=== PATIENT | male | born 1965 | race Caucasian/White ===

== ENCOUNTER → 2016-12-24 | Outpatient (CLI) | payer OTHER ==
[~2016-12-24] MED LIST: LEVO150T7 PO; LUMI0.01 EACH EYE; RANI300T PO; TEST1INJ3 IM
[2016-12-24 12:29] LABS: AUTOMATED NEUTROPHIL # 3.8 TH/MM3 (1.8-7.7); BASOPHIL % 0.5 % (0.0-2.0); EOSINOPHIL # 0.4 TH/MM3 (0-0.4); EOSINOPHIL % 5.1 % (0.0-4.0); HEMATOCRIT 43.3 % (39.0-51.0); HEMO FLAGS DIFF FINAL; LYMPHOCYTE # 2.5 TH/MM3 (1.0-4.8); MEAN CELL VOLUME 91.7 FL (80.0-100.0); MEAN CORPUSCULAR HEMOGLOBIN 32.7 PG (27.0-34.0); MEAN CORPUSCULAR HGB CONC 35.7 % (32.0-36.0); MONO % 11.1 % (0.0-8.0); NEUT % 50.3 % (16.0-70.0); PLATELET COUNT 365 TH/MM3 (150-450); RED BLOOD COUNT 4.72 MIL/MM3 (4.50-5.90); RED CELL DISTRIBUTION WIDTH 13.6 % (11.6-17.2); WHITE BLOOD COUNT 7.5 TH/MM3 (4.0-11.0)
[2016-12-24 12:48] LABS: BLOOD, URINE NEG (NEG); COMMENT (UR) CULT NOT INDICATED; CULTURE IF INDICATED CULT NOT INDICATED; GLUCOSE,URINE NEG (NEG); KETONE, URINE NEG (NEG); MUCUS URINE FEW /lpf (OCC); NITRITE,URINE NEG (NEG); PH, URINE 6.5 (5.0-8.5); URINE COLOR LIGHT-YELLOW (YELLW/STRAW)
[2016-12-24 12:56] LABS: ANION GAP 8 MEQ/L (5-15); AST (GOT) 26 U/L (15-37); BICARBONATE 24.2 MEQ/L (21.0-32.0); BLOOD UREA NITROGEN 12 MG/DL (7-18); CHLORIDE 105 MEQ/L (98-107); GLOMERULAR FILTRATION RATE 73 ML/MIN (>89); GLUCOSE,FASTING 112 MG/DL (74-99); SODIUM (NA) 137 MEQ/L (136-145)
[2016-12-24 13:00] LABS: ALKALINE PHOSPHATASE 53 U/L (45-117); ALT (GPT) 50 U/L (12-78); TOTAL BILIRUBIN ADULT 0.4 MG/DL (0.2-1.0)
--- NOTE | 2016-12-24 13:21 | RADRPT ---
EXAM DATE/TIME: 12/24/2016 12:57 [facility] COMPARISON: No previous studies available for comparison. INDICATIONS : Pre-op Anorectoplasty. Evaluate for pneumonia, pneumothorax and communicable diseases. MEDICAL HISTORY : None. SURGICAL HISTORY : None. ENCOUNTER: Initial ACUITY: 1 day PAIN SCORE: 0/10 LOCATION: Bilateral chest FINDINGS: PA and lateral views of the chest demonstrate the lungs to be symmetrically aerated without evidence of mass, infiltrate or effusion. A small calcified granuloma within the right lung apex. The cardiom ediastinal contours are unremarkable. Osseous structures are intact. CONCLUSION: No acute disease. Dino Oliveira Jr., MD on December 24, 2016 at 13:19 Board Certified Radiologist. This report was verified electronically.
--- NOTE | 2016-12-25 08:39 | EKG ---
Date Performed: 12/24/2016 Time Performed: 12:40:34 PTAGE: 51 years EKG: Sinus rhythm WITH OCCASIONAL VENTRICULAR PREMATURE COMPLEXES MODERATE INTRAVENTRICULAR CONDUCTION DELAY BORDERLIN E ECG NO PREVIOUS TRACING DOCTOR: Dion Whelan Interpretating Date/Time 12/25/2016 08:37:53
== END ==
LOC: CPRE 11:50
PROVIDERS: ATTEND Colon & Rectal Surgery
DX: Z01.812 Encounter for preprocedural laboratory examination (principal); Z01.811 Encounter for preprocedural respiratory examination; Z01.810 Encounter for preprocedural cardiovascular examination; K64.2 Third degree hemorrhoids; R94.31 Abnormal electrocardiogram [ECG] [EKG]
CPT/HCPCS: 36415; 71020; 80053; 81001; 85025; 93005

== ENCOUNTER → 2016-12-31 | Day surgery (SDC) | payer OTHER ==
[~2016-12-31] VITALS: Ht 182.9 cm; Wt 99.2 kg
[~2016-12-31] MED LIST changes: +*morphine SULFATE 8 MG/ML PERIprocedure ONLY ONE; +ACETAMINOPHEN 1000 MG/100 ML 100 ML IV ONE; +BUPIVACAINE/EPINEPHRINE 0.5% 50 ML VIAL ONE; +CHLORHEXIDINE GLUCONATE 2 % 1 PACK (2 CLOTHS) TOPICAL PRN; +DO NOT ADM ANY ANTICOAGULANT DRUGS PRN; +FAMOTIDINE 20 MG/2 ML VIAL ONE; +HYDROmorphone HCL PF 2 MG/ML VIAL ONE; +INSULIN HUMAN REGULAR 1,000 UNITS/10 ML VIAL SQ PRN; +KETOROLAC TROMETHAMINE 30 MG/ML (IVP) VIAL IV PUSH ONE; +KETOROLAC TROMETHAMINE 30 MG/ML (IVP) VIAL ONE; +LACTATED RINGER'S 1000 ML IV PRN; +LIDOCAINE 2%/EPINEPHrine PF 1:200,000 20ML SDV ONE; +METOPROLOL TARTRATE 25 MG TAB PO PRN; +MIDAZOLAM HCL 2 MG/2 ML VIAL ONE; +MORPHINE SULFATE 4 MG/ML INJ IV PRN; +ONDANSETRON HCL 4 MG/2 ML VIAL IV PUSH ONE; +ONDANSETRON HCL 4 MG/2 ML VIAL IV PUSH PRN; +POVIDONE IODINE 5% (ANTISEPSIS KIT) 4 APPLICATIONS EACH NARE PRN; +PROPOFOL 200 MG/20 ML AMP IV ONE; +SILVER SULFADIAZINE/LIDOCAINE CREAM 60 GM JAR ONE; +SODIUM CHLORID 0.9% 500 ML IV PRN; +SUGAMMADEX SODIUM 200 MG/2 ML VIAL IV PUSH ONE; +oxyCODONE/ACETAMINOPHEN 10 MG/325 MG TAB PO PRN
--- NOTE | 2016-12-31 08:30 | PD.HP.UP ---
H&P Update Note The Pre-Admit History and Physical Examination regarding the above named patient was reviewed (including, but not limited to, vital signs, heart, lungs, co-morbid conditions), and upon re-examination it is noted that: the patient's condition has not significantly changed since the last examination. Santos Dior MD Dec 31, 2016 08:30
[2016-12-31 10:50] VITALS: BP 144/86; RESP 18; TEMP 97.1; O2SAT 95
--- NOTE | 2017-01-01 12:06 | MP ---
cc: DANIELLE FREEMAN M.D. DATE OF SURGERY December 31, 2016 PREOPERATIVE DIAGNOSIS Symptomatic hemorrhoids, grade 3-4. PROCEDURE Exam under anesthesia with anal rectoplasty. POSTOPERATIVE DIAGNOSIS Symptomatic hemorrhoids, grade 3-4. SURGEON Dr. Freeman PROCEDURE The patient was placed in the supine position. After adequate general anesthesia, he was turned and placed in the prone jackknife position and supported appropriately. The buttocks were then taped apart, prepped with Betadine solution and draped in the usual sterile fashion. Initially local anesthesia was obtained by injection of 2% Xylocaine plus 0.5% Marcaine with epinephrine. The anal canal was gently dilated and a half-martin retractor inserted. Examination revealed very large hemorrhoids in the left lateral quadrant and a smaller hemorrhoidal mass in the right side of the anal canal. There did appear to be a chronic fissure in the posterior midline. No pecten band was palpable. The lumen of the anal canal appeared to be adequate. Initially an elliptical incision was made over the large hemorrhoidal mass in the left lateral quadrant taking tissue off the internal and external sphincter. Dissection proceeded up into the anal canal and dividing the pedicle above the hemorrhoidal mass using electrocautery. The mucosal defect and anoderm were then closed using a running chromic catgut suture. Several interrupted 3-0 Vicryl sutures were placed for hemostasis. Similar dissection was then performed in the right lateral position taking a very vascular-appearing internal hemorrhoid off the sphincter in a similar fashion and closing the defect with a row of running chromic catgut suture. At completion, both sites were hemostatic. There was an adequate lumen size. Small Surgicel dressing was placed in the anal canal and a large fluff dressing placed externally. The patient tolerated the procedure quite well and was brought to the recovery room in stable condition. Sponge and needle counts were correct at the end of the procedure. MD JAMEL Menchaca/JERONIMO /10:20 PM /11:57 AM
== END | disposition home or self-care (01) ==
LOC: HSDC 06:45
PROVIDERS: ATTEND Colon & Rectal Surgery
DX: K64.2 Third degree hemorrhoids (principal); K64.4 Residual hemorrhoidal skin tags; I10 Essential (primary) hypertension; K21.9 Gastro-esophageal reflux disease without esophagitis; Z86.010 Personal history of colon polyps
CPT/HCPCS: 00902; 46260; 88304; J0131; J1170; J1885; J2250; J2270; J2405; J3010; J7120